=== PATIENT | male | born 1950 | race Caucasian/White ===

== ENCOUNTER → 2018-06-29 | Outpatient (CLI) | payer MEDICARE, OTHER ==
[~2018-06-29] MED LIST: AMIODARONE PO; BACTRIM DS TAB1 EACH PO; COREG PO; IBUPROFEN 600600 M1 PO; LISINOPRIL2.5 MG PO; LOW DOSE ASPIRI81 M1 PO; NOHOMEMEDICATIONS; ONE DAILY MULT1 EAC2 PO; SPIRONOLACTONE25 M1 PO; TRIAMCINOLONE A80 G2
== END ==
LOC: M.RAD 14:03
DX: I42.9 Cardiomyopathy, unspecified (principal); M41.84 Other forms of scoliosis, thoracic region; Z95.0 Presence of cardiac pacemaker